=== PATIENT | male | born 1960 | race Caucasian/White ===

== ENCOUNTER → 2016-10-08 | Outpatient (CLI) | payer OTHER ==
[~2016-10-08] MED LIST: ACT30 PO; AMLO-110 PO; ASPI81TA28 PO; ATOR-22 PO; CARV25TA2 PO; CITA10TA4 PO; DICY20TA35 PO; FURO-85 PO; GLIM4TAB2 PO; LISI-788 PO; MAGN400T6 PO; METF1TAB53 PO; PANT40TA PO
--- NOTE | 2016-10-09 06:17 | PAP/PSG TECHNICIAN REPORT ---
[facility] Snuff Packing Machine Operator Polysomnogram Report Study name: None Report date: 10/09/2016 Study date: 10/08/2016 Referring Physician: Marquis Ho M.D. Name: URSULA AMANDO Vargas Interpreting Physician: Marlon Ho M.D. Date of : 1960 Snuff Packing Machine Operator: Falguni Borrego [facility]. Sex: Male Age: 55 StudyType: PSG Weight: 351 lbs Height: 55 years, Height 6' 0" Neck Circum: 20 inches BMI: 47.6 Medications: Protonix 40 mg, Prandin 2 mg, Lantus 100 Trulicty 1.5mg/0.5 ml, Norvasc 10 mg, Bentyl 20 mg, Coreg 25 mg, Magnesium Oxide 400 mg, Celexa 10 mg, Lipitor 20 mg, Lisinopril-HCTZ 20-25 mg, Glucophage 1000 mg, Aspirin 81 mg, Ventolin HFA 108( 90 base), Patient History 55 yr. old male here for a titration sleep study to document resolution of hypoxemia. Patient is currently on Auto from 5-15 and is averaging a pressure of 10.5. Parameters Monitored NPSG: E1-M2, E2-M1, Fp1-M2, Fp2-M1, F3-M2, F4-M2, F4-M1, C3-M2, C4-M2, C4-M1, O1-M2, O2-M2, O2-M1, T3-M2, T4-M1, P3-M2, P4-M1, CHIN1, CHIN2, HR, EKG, Legs, PFLOW, SNOR, FLOW, CFLOW, Tidal Volume, THOR, ABDO, SpO2, PLTH, CPRESS, ETCO2 Wave, ETCO2, pH Sleep Architecture Sleep Stages Time at Lights Off 9:40:44 PM STAGES Time (min.) TST (%) Time at Lights On 5:52:14 AM Wake 113.0 -- Total Recording Time (TRT) 491.00 min. N1 99.0 26 Total Sleep Period (TSP) 479.5 min. N2 209.5 55 Total Sleep Time (TST) 378.0min. N3 23.0 6 Awake Time 113.0 min. REM 46.5 12 Wake after Sleep Onset 102.0 min. Sleep Efficiency (SE) 77 % Sleep Onset Latency (SHANNAN) 11.5 min. Number of Stage 1 Shifts None Awakenings 40 Stage Changes 156 Number of REM periods 3 REM 46.5 12 REM Latency 225.0 min. NREM 331.5 88 Body Position Analysis Supine Right Left Side Prone Vertical Total Sleep Time (min.) 54.8 87.5 262.0 349.50 0.0 0.2 Total Sleep Time (%) 8% 23% 69% 92 0% N/A% Total Sleep Time REM (min.) 0.0 0.0 46.5 None 0.0 0.0 Total Sleep Time NREM (min.) 28.5 87.5 215.5 None 0.0 0.0 Intermittent Wake (min.) 26.3 25.1 61.4 None 0.0 0.2 Total Sleep Period (%) 9% None None None None None Arousals Myoclonus (PLM) * Events Count Index Events Count Index Spontaneous 21 3 Events Awake (PLMW) 90 47.8 Respiratory 22 3.8 Events Asleep w/ Arousal (PLMA) 32 5.1 PLM 30 5 Events Asleep w/o Arousal (PLMS) 179 28.4 Snoring 13 2 Total Asleep 211 33.5 Total 86 14 Total 301 37 Respiratory Analysis * CA OA MA CH H RERA Total Count 1 11 0 0 105 0 117 Index 0.2 1.7 0.0 0 16.7 0 18.6 Mean Duration 9.1 10.6 0.0 0.00 17.1 0.0 16.4 Longest Duration 9.1 13.0 0.0 0.00 0.0 0.0 59.3 Respiratory Event Summary Total Supine ~Supine Right Left Prone REM NREM Apneas Count 12 8 4 3 1 N/A 0 12 Index 1.9 17 1 2.1 0.2 N/A 0 2 Hypopneas (4% Desat) Count 105 42 63 28 35 N/A 12 93 Index 16.7 88.4 11 19.2 8.0 N/A 15.5 16.8 Apneas & All Hypopneas Count 117 50 67 31 36 N/A 12 105 Index 18.6 105 12 21 8 N/A 15.5 19.0 Respiratory Events (Environmental Sciences Professor+All Hyp+RERA) Count 117 50 67 31 36 N/A 12 105 Index 18.6 105 12 21.3 8.2 N/A 15.5 19.0 Respiratory Related Arousal Count 22 50 15 11 4 N/A 0 24 Index 3.8 19 3 8 1 N/A 0 4 Snoring Analysis Supine Right Left Prone REM NREM Total Snore duration 3.6 min Snores count 13 70 47 N/A 1 129 130 Snore mean duration 1.7 Sec Snores index 27 48 11 N/A 1.3 23.3 20.6 TST with snoring (%) 0.9% Desaturation Event Summary: Minimum %SpO2 Event Count Mean/Min/Max Duration(sec.) Desaturation Index % Time In Bed > 90 55 22.7 / 7.0 / 54.8 53.6 12.9 86 - 90 173 16.7 / 5.0 / 54.8 27.1 80.1 81 - 85 9 15.9 / 5.5 / 52.3 16.7 6.8 76 - 80 0 N/A 0.0 0.2 71 - 75 0 N/A 0.0 0.0 66 - 70 0 N/A 0.0 0.0 61 - 65 0 N/A 0.0 0.0 56 - 60 0 N/A 0.0 0.0 51 - 55 0 N/A 0.0 0.0 < 50 0 N/A 0.0 0.0 Total REM NREM Awake <50% 0.0 min. 0.0 min. 0.0 min. 0.0 min. 51 - 60% 0.0 min. 0.0 min. 0.0 min. 0.0 min. 61 - 70% 0.0 min. 0.0 min. 0.0 min. 0.0 min. 71 - 80% 1.1 min. 0.2 min. 0.3 min. 0.6 min. 81 - 90% 415.2 min. 42.6 min. 299.3 min. 73.3 min. 91 - 100% 61.6 min. 3.8 min. 31.4 min. 26.4 min. Average 88 88 88 89 Minimum SpO2 79 79 80 79 Desaturation Event Index 23.8 14.2 21.0 38.2 # Desat. Events below 89% 191 11 113 67 Time(%) with Saturation below 89% 58.1 5.5 42.4 10.2 Time(min.) with Saturation below 89% 277.5 26.1 202.5 48.9 Time (mins) REM (mins) NREM (mins) % of TST SpO2 Below 90% 126 11 N115 79.4 SpO2 Below 88% 37 0 0 35 Heart Rate Analysis Min (bpm) Max (bpm) Average (bpm) Awake 69 265 80 NREM 66 88 76 REM 65 89 75 Overall 65 89 76 Supplemental O2 Values Minimum O2 level: None Value Start Time End Time Snuff Packing Machine Operator Comments Mr. De La Cruz slept in the right, left, and supine positions. No cardiac arrhythmia. PLMs noted. No bruxism noted. CPAP was initiated at +4 CMH2O room air and up-titrated to an optimal level of + 14 CMH2O Cflex 3 with 1 lpm 02. At 4:46 am 1 lpm suppliemtal 02 was added, Mr. De La Cruz was on a pressure of 14 CMH20 for 126.8 min, AHI was 2.7 and he was under 89% for 71.8 minutes. The study was started with patient ResMed N10, but as the pressure increased so did the leak. He was switched to a large [employer] and Paykel Eson. Mr. De La Cruz awoke to use the restroom once during the night. Mr. De La Cruz stated, That was a normal night. The final report will be interpreted and signed by a sleep physician. The completed physician report will then be placed in the patient medical record. Therapy Event: Therapy (cm H20) 4 5 7 8 9 10 11 12 13 14 Total Time at Pressure (min.) 22.5 32.0 30.9 20.0 14.4 61.0 14.6 51.4 52.9 191.3 TST at Pressure (min.) 10.0 27.0 21.4 8.0 7.9 41.0 13.7 40.8 51.4 156.8 # Periods 1 1 1 1 1 1 1 1 1 1 Sleep Onset (min.) 11.5 0.0 0.0 1.1 0.0 0.0 0.0 10.6 0.0 0.0 REM Onset (min.) N/A N/A N/A N/A N/A N/A N/A 41.1 0.0 99.3 Sleep Efficiency % 44 84 69 39 54 67 93 79 97 82 Wakefulness (%) 55.4 15.6 30.6 60.2 45.3 32.8 6.3 20.6 2.8 18.0 Wakefulness (min.) 12.5 5.0 9.4 12.1 6.5 20.0 0.9 10.6 1.5 34.5 NREM 1 (%) 28.9 50.0 27.5 29.8 47.8 11.5 35.4 9.7 6.6 18.0 NREM 1 (min.) 6.5 16.0 8.5 6.0 6.9 7.0 5.2 5.0 3.5 34.5 NREM 2 (%) 15.7 34.4 41.9 10.0 7.0 39.3 58.2 37.0 44.8 54.3 NREM 2 (min.) 3.5 11.0 12.9 2.0 1.0 24.0 8.5 19.0 23.7 103.8 NREM 3 (%) 0.0 0.0 0.0 0.0 0.0 16.4 0.0 12.7 0.0 3.4 NREM 3 (min.) 0.0 0.0 0.0 0.0 0.0 10.0 0.0 6.5 0.0 6.5 REM (%) 0.0 0.0 0.0 0.0 0.0 0.0 0.0 20.0 45.8 6.3 REM (min.) 0.0 0.0 0.0 0.0 0.0 0.0 0.0 10.3 24.2 12.0 # Arousals 2 10 18 5 2 10 6 2 3 28 Arousal Index 12.0 22.2 50.4 37.7 15.3 14.6 26.3 2.9 3.5 10.7 # Snore 1 35 29 4 3 11 6 1 11 29 Snore Index 6.0 77.7 81.2 30.1 22.9 16.1 26.3 1.5 12.8 11.1 AHI 29.9 40.0 56.0 75.3 106.9 22.0 83.4 11.8 3.5 1.9 AHI Supine N/A N/A N/A 92.8 143.0 162.4 83.4 N/A N/A N/A AHI Non-Supine 29.9 40.0 56.0 0.0 42.5 9.6 N/A 11.8 3.5 1.9 NREM AHI 29.9 40.0 56.0 75.3 106.9 22.0 83.4 0.0 2.2 1.2 REM AHI N/A N/A N/A N/A N/A N/A N/A 46.6 5.0 10.0 RDI 29.9 40.0 56.0 75.3 106.9 22.0 83.4 11.8 3.5 1.9 # Obstructive 0 3 1 3 1 2 1 0 0 0 # Central Ap 0 0 0 0 0 0 1 0 0 0 # Mixed 0 0 0 0 0 0 0 0 0 0 # Hypopneas 5 15 19 7 13 13 17 8 3 5 RERAS 0 0 0 0 0 0 0 0 0 0 Total Respiratory Events 5 18 20 10 14 15 19 8 3 5 Time Below SpO2 89.00% (min.) 9.1 18.1 17.0 4.8 5.6 39.6 11.5 28.1 21.8 73.0 Mean NREM SpO2 (%) 87 88 87 88 87 86 87 88 89 89 Mean REM SpO2 (%) N/A N/A N/A N/A N/A N/A N/A 87 89 87 Mean Sleep SpO2 (%) 87 88 87 88 87 86 87 88 89 89 Min NREM SpO2 (%) 83 82 81 84 84 80 83 86 87 85 Min REM SpO2 (%) N/A N/A N/A N/A N/A N/A N/A 79 86 83 Position Supine (min.) 0.0 0.0 0.0 6.5 5.0 3.3 13.7 0.0 0.0 0.0 Position Non-supine (min.) 10.0 27.0 21.4 1.5 2.8 37.7 0.0 40.8 51.4 156.8 LM Index Sleep 6.0 8.9 56.0 30.1 53.5 17.6 17.6 11.8 36.2 45.9 LM Index NREM 6.0 8.9 56.0 30.1 53.5 17.6 17.6 11.8 55.2 46.8 LM Index REM N/A N/A N/A N/A N/A N/A N/A 11.7 14.9 35.0 Mean Heart Rate (bpm) 78 78 78 77 78 79 76 78 74 75 Min Heart Rate (bpm) 74 73 74 74 74 73 72 66 65 66
--- NOTE | 2016-10-19 17:34 | POLYSOMNOGRAPH REPORT ---
REFERRING PERSON: Dr. Karin Ho. GENERATOR ASSEMBLER: Falguni Borrego. Mr. De La Cruz is a 55-year-old male sent for a CPAP titration study. He is currently using an auto titrating CPAP at home with an average pressure of about 10. He had considerable nocturnal hypoxemia on his baseline study and returns to the lab to make sure that this resolves with CPAP alone. Following the technical and digital specifications of the [place] [employer] (AASM) a standard diagnostic polysomnogram was performed monitoring EEG, EOG, EMG (chin and leg deviations), oxygen saturation, body position, digital video, respiratory effort and airflow. The sleep Stage and event scoring was based on the AASM Manual for the Scoring of Sleep and Associated Events 2007 edition. Apneas are defined as a drop in the peak thermal sensor excursion by >90% of baseline for at least 10 seconds. Hypopneas were scored using the 4% oxygen desaturation rule (4A-Medicare) and a decrease in the nasal pressure excursions by >30% of baseline for at least 10 seconds. Respiratory effort-related arousal (RERA's) is defined as a sequence of breaths lasting at least 10 seconds characterized by increasing respiratory effort or flattening of the nasal pressure waveform leading to an arousal from sleep when the sequence of breaths does not meet criteria for an apnea or hypopnea. Apnea Hypopnea index (AHI) is defined as the number of apneas and hypopneas occurring in an hour of sleep. Respiratory disturbance index (RDI) is defined as the number of apneas, hypopneas, and RERA's occurring in an hour of sleep. Mr. De La Cruz's total sleep period time was 479.5 minutes. Total sleep time was 378 minutes. Sleep efficiency was 77%. Latency to sleep onset was 11.5 minutes. Wake after sleep onset was 102 minutes. Total non-REM sleep time was 331.5 minutes. He spent 26% of that time in N1 sleep, 55% in N2 sleep and 6% in N3 sleep. REM latency was 225 minutes. Total REM sleep time was 46.5 minutes or 12% of total sleep time. There were 86 cortical arousals from sleep. Twenty one of these arousals were spontaneous, 22 were due to respiratory events, 30 were due to periodic limb movements of sleep and 13 were due to snoring. There were 211 periodic limb movements noted on this test. Limb movement index was 33.5. Limb movement with arousal index was 5.1. On the study, there were 11 obstructive apneas, 1 central apnea and no mixed apnea. Additionally, there were 105 hypopnea. Apnea-hypopnea index was 18.6. There were 130 snoring events. Total sleep time with snoring was 0.9%. Mean saturation was low at 88% with desaturations with respiratory events to 79%. Saturations were less than 89% for 277.5 minutes of recorded time. There was no cardiac ectopy noted on this study. Heart rate ranged from a low of 65 beats per minute to a high of 89 beats per minute during sleep. As stated above, this patient was sent to the lab for a CPAP titration study. He was titrated from a CPAP pressure of 4 to a CPAP pressure of 14 over the course of the night. Increasing pressures were needed to prevent apneas, hypopneas and arousals. He was observed on a pressure of 14 for 156.8 minutes of sleep time. During that time, there were 12 minutes of REM sleep. AHI and RDI on this pressure were both 1.9. Saturations remained below 89% on this pressure for 73 minutes of recorded time. After Mr. De La Cruz had been on CPAP at a pressure of 14 for 126.8 minutes with an AHI of 2.67, his saturations were less than 89% for 71.8 minutes and he was started on 1 liter of oxygen. This did seem to improve his hypoxemia but did not completely eliminate desaturations. He tried multiple masks during the night and appears he did well on a large A[employer]ria \T\ Paykel Eson mask. IMPRESSION AND PLAN: Successful CPAP titration study on a patient with known obstructive sleep apnea. Using a large [employer] \T\ Paykel Eson mask at a pressure of 14, Mr. De La Cruz's apnea was resolved. However, this patient continued to have nocturnal hypoxemia which improved with 1 liter of oxygen. 1. I would recommend that this patient be started on CPAP at 14 with 1 liter of nocturnal oxygen for desaturations despite adequate treatment of sleep disordered breathing. An n.p.o. can be performed on these settings to ensure 1 liter of oxygen is sufficient to eliminate these residual events.
== END | disposition home or self-care (01) ==
LOC: C.NEUR 20:00
PROVIDERS: ATTEND Family Medicine
DX: G47.33 Obstructive sleep apnea (adult) (pediatric) (principal); G47.34 Idiopathic sleep related nonobstructive alveolar hypoventilation

== ENCOUNTER → 2017-01-27 | Outpatient (CLI) | payer OTHER ==
--- NOTE | 2017-01-28 06:21 | PAP/PSG TECHNICIAN REPORT ---
[facility] Power Plant Supervisor Polysomnogram Report Study name: None Report date: 01/28/2017 Study date: 01/27/2017 Referring Physician: Marquis Ho M.D. Name: URSULA AMANDO Sam Interpreting Physician: Marlon Ho M.D. Date of : 1960 Power Plant Supervisor: Stephanie More RPSGT. Sex: Male Age: 56 Study Type: PSG PAP Weight: 364 lbs Height: 56 years, Height 6' 0" BMI: 49.36 Medications: LISIONPRIL-HYDROCHLOROTHIAZIDE 20-25 MG, CARVEDILOL 25 MG, MAGNESIUM OXIDE 400 MG, PRANDIN 2 MG, LANTUS 100 UNIT/ML, ASPIRIN 81 MG, PANTOPRAZOLE 40 MG, DULAGLUTIDE 1.5 MG/0.5 ML, AMLODIPINE 10 MG, BENTYL 20 MG, CITALOPRAM 10 MG, ATORVASTATIN 20 MG, METFORMIN 1000 MG, VENTOLIN HFA, TRIAMCINOLONE ACETONIDE 0.1% EX OINT Patient History 56 yr-old male here for a CPAP update study. He wears CPAP every night and uses O2 along with it. He is back to assess his pressure and O2 saturations. BiPAP will be used if indicated. Per the doctor's order the pressure will be started on 12 CMH2O with 2 LPM O2. He is wearing an AirFit N20 nasal mask from [employer] for [employer]. ETCO2 testing was not utilized during this study. Room 1 Parameters Monitored NPSG: E1-M2, E2-M1, Fp1-M2, Fp2-M1, F3-M2, F4-M2, F4-M1, C3-M2, C4-M2, C4-M1, O1-M2, O2-M2, O2-M1, T3-M2, T4-M1, P3-M2, P4-M1, CHIN1, CHIN2, HR, EKG, Legs, PFLOW, SNOR, FLOW, CFLOW, Tidal Volume, THOR, ABDO, SpO2, PLTH, CPRESS, ETCO2 Wave, ETCO2, pH Sleep Architecture Sleep Stages Time at Lights Off 9:39:57 PM STAGES Time (min.) TST (%) Time at Lights On 5:32:27 AM Wake 75.5 -- Total Recording Time (TRT) 472.50 min. N1 26.0 7 Total Sleep Period (TSP) 447.0 min. N2 251.5 63 Total Sleep Time (TST) 397.0min. N3 2.5 1 Awake Time 75.5 min. REM 117.0 29 Wake after Sleep Onset 58.5 min. Sleep Efficiency (SE) 84 % Sleep Onset Latency (SHANNAN) 17.0 min. Number of Stage 1 Shifts None Awakenings 21 Stage Changes 92 Number of REM periods 10 REM 117.0 29 REM Latency 54.0 min. NREM 280.0 71 Body Position Analysis Supine Right Left Side Prone Vertical Total Sleep Time (min.) 0.2 205.5 191.5 397.00 0.0 0.0 Total Sleep Time (%) 0% 52% 48% 100 0% N/A% Total Sleep Time REM (min.) 0.0 71.5 45.5 None 0.0 0.0 Total Sleep Time NREM (min.) 0.0 134.0 146.0 None 0.0 0.0 Intermittent Wake (min.) 0.2 43.0 32.3 None 0.0 0.0 Total Sleep Period (%) 0% None None None None None Arousals Myoclonus (PLM) * Events Count Index Events Count Index Spontaneous 33 5 Events Awake (PLMW) 34 27.0 Respiratory 1 0.2 Events Asleep w/ Arousal (PLMA) 20 3.0 PLM 20 3 Events Asleep w/o Arousal (PLMS) 283 42.8 Snoring 6 1 Total Asleep 303 45.8 Total 60 9 Total 337 43 Respiratory Analysis * CA OA MA CH H RERA Total Count 1 0 0 0 19 0 20 Index 0.2 0.0 0.0 0 2.9 0 3.0 Mean Duration 11.3 0.0 0.0 0.00 16.4 0.0 16.2 Longest Duration 11.3 0.0 0.0 0.00 0.0 0.0 22.2 Respiratory Event Summary Total Supine ~Supine Right Left Prone REM NREM Apneas Count 1 N/A 1 1 0 N/A 1 0 Index 0.2 N/A 0 0.3 0.0 N/A 1 0 Hypopneas (4% Desat) Count 19 N/A 19 2 17 N/A 16 3 Index 2.9 N/A 3 0.6 5.3 N/A 8.2 0.6 Apneas & All Hypopneas Count 20 N/A 20 3 17 N/A 17 3 Index 3.0 N/A 3 1 5 N/A 8.7 0.6 Respiratory Events (All Around Patternmaker+All Hyp+RERA) Count 20 N/A 20 3 17 N/A 17 3 Index 3.0 N/A 3 0.9 5.3 N/A 8.7 0.6 Respiratory Related Arousal Count 1 N/A 1 1 0 N/A 0 1 Index 0.2 N/A 0 0 0 N/A 0 0 Snoring Analysis Supine Right Left Prone REM NREM Total Snore duration 1.5 min Snores count N/A 19 15 N/A 5 29 34 Snore mean duration 2.6 Sec Snores index N/A 6 5 N/A 2.6 6.2 5.1 TST with snoring (%) 0.4% Desaturation Event Summary: Minimum %SpO2 Event Count Mean/Min/Max Duration(sec.) Desaturation Index % Time In Bed > 90 44 32.3 / 9.0 / 60.0 8.6 64.8 86 - 90 23 26.2 / 11.3 / 60.0 8.4 34.9 81 - 85 0 N/A 0.0 0.3 76 - 80 0 N/A 0.0 0.0 71 - 75 0 N/A 0.0 0.0 66 - 70 0 N/A 0.0 0.0 61 - 65 0 N/A 0.0 0.0 56 - 60 0 N/A 0.0 0.0 51 - 55 0 N/A 0.0 0.0 < 50 0 N/A 0.0 0.0 Total REM NREM Awake <50% 0.0 min. 0.0 min. 0.0 min. 0.0 min. 51 - 60% 0.0 min. 0.0 min. 0.0 min. 0.0 min. 61 - 70% 0.0 min. 0.0 min. 0.0 min. 0.0 min. 71 - 80% 0.0 min. 0.0 min. 0.0 min. 0.0 min. 81 - 90% 166.2 min. 67.5 min. 95.7 min. 3.0 min. 91 - 100% 305.8 min. 49.5 min. 184.3 min. 72.0 min. Average 91 90 91 94 Minimum SpO2 84 84 85 85 Desaturation Event Index 6.5 13.8 4.3 3.2 # Desat. Events below 89% 29 21 8 N/A Time(%) with Saturation below 89% 10.6 5.6 4.8 0.2 Time(min.) with Saturation below 89% 49.9 26.5 22.8 0.7 Time (mins) REM (mins) NREM (mins) % of TST SpO2 Below 90% 44 26 N18 22.6 SpO2 Below 88% 14 0 0 6 Heart Rate Analysis Min (bpm) Max (bpm) Average (bpm) Awake 62 89 74 NREM 58 85 69 REM 56 83 66 Overall 56 85 68 Supplemental O2 Values Minimum O2 level: None Value Start Time End Time Power Plant Supervisor Comments Mr. De La Cruz slept in the right and left positions. No cardiac arrhythmias were noted. PLMs were noted. No bruxism noted. CPAP was initiated at +12 CMH2O and 2 LPM O2 (per the doctor's order) and up-titrated to a level of +13 CMH2O, Cflex 2. He continued to have hypopneas in REM, so he was then switched to BiPAP at +15/8 CMH2O Biflex 3. He used his own AirFit N20 nasal mask from [employer] for [employer] during the titration He did not wake up to use the restroom during the night. Mr. De La Cruz stated that he slept about the same as usual. The final report will be interpreted and signed by a sleep physician. The completed physician report will then be placed in the patient medical record. Therapy Event: Therapy (cm H20) 12 13 15/8 Total Time at Pressure (min.) 111.9 251.0 109.6 TST at Pressure (min.) 69.4 228.6 99.0 # Periods 1 1 1 Sleep Onset (min.) 17.0 0.0 0.1 REM Onset (min.) 71.0 36.6 34.6 Sleep Efficiency % 62 91 90 Wakefulness (%) 38.0 8.9 9.7 Wakefulness (min.) 42.5 22.4 10.6 NREM 1 (%) 6.7 5.4 4.6 NREM 1 (min.) 7.5 13.5 5.0 NREM 2 (%) 45.9 65.4 32.8 NREM 2 (min.) 51.4 164.1 36.0 NREM 3 (%) 0.4 0.8 0.0 NREM 3 (min.) 0.5 2.0 0.0 REM (%) 8.9 19.5 52.9 REM (min.) 10.0 49.0 58.0 # Arousals 16 32 12 Arousal Index 13.8 8.4 7.3 # Snore 5 17 12 Snore Index 4.3 4.5 7.3 AHI 6.1 2.9 1.2 AHI Supine N/A N/A N/A AHI Non-Supine 6.1 2.9 1.2 NREM AHI 0.0 0.7 1.5 REM AHI 42.0 11.0 1.0 RDI 6.1 2.9 1.2 # Obstructive 0 0 0 # Central Ap 0 0 1 # Mixed 0 0 0 # Hypopneas 7 11 1 RERAS 0 0 0 Total Respiratory Events 7 11 2 Time Below SpO2 89.00% (min.) 3.9 7.4 37.9 Mean NREM SpO2 (%) 91 91 89 Mean REM SpO2 (%) 89 90 90 Mean Sleep SpO2 (%) 91 91 89 Min NREM SpO2 (%) 88 87 85 Min REM SpO2 (%) 85 85 84 Position Supine (min.) 0.0 0.0 0.0 Position Non-supine (min.) 69.4 228.6 99.0 LM Index Sleep 19.0 73.0 1.8 LM Index NREM 20.2 90.8 0.0 LM Index REM 12.0 7.3 3.1 Mean Heart Rate (bpm) 73 68 63 Min Heart Rate (bpm) 66 60 56 CPAP REPORT Therapy Detail Time / Page # Comment CPAP 12 cm H2O Nasal Mask Flex Pressure Relief Humidifier on Oxygen 2.0 lpm 9:37:08 PM / pg. 150 PRESSURE STARTED AT 12 WITH 2 LPM OF O2 PER DOCTOR'S ORDER CPAP 13 cm H2O Nasal Mask Flex Pressure Relief Humidifier on Oxygen 2.0 lpm 11:31:48 PM / pg. 379 INCREASED FOR HYPOPNEAS IN REM BiLevel 15/8 cm H2O Nasal Mask Flex Pressure Relief Humidifier on Oxygen 2.0 lpm 3:42:50 AM / pg. 881 HE IS STILL HAVING SOME HYPOPNEAS IN REM. TRYING BIPAP WITH A PRESSURE DIFFERENTIAL OF 7
--- NOTE | 2017-02-05 09:41 | POLYSOMNOGRAPH REPORT ---
REFERRING PERSON: Dr. Karin Ho. PROMOTIONS SPECIALIST: Stephanie More. Mr. De La Cruz is a 56-year-old male sent for a CPAP titration study. He currently is using CPAP at 12 with 2 liters of oxygen and this titration will begin on those settings. He will be switched to bilevel therapy if indicated. He chose an AirFit N20 nasal mask by [employer] for his titration. Mr. De La Cruz's [place] sleepiness scale score on the evening of this study is not recorded. BMI is 49.36. Following the technical and digital specifications of the [place] [employer] (AASM) a standard diagnostic polysomnogram was performed monitoring EEG, EOG, EMG (chin and leg deviations), oxygen saturation, body position, digital video, respiratory effort and airflow. The sleep Stage and event scoring was based on the AASM Manual for the Scoring of Sleep and Associated Events 2007 edition. Apneas are defined as a drop in the peak thermal sensor excursion by >90% of baseline for at least 10 seconds. Hypopneas were scored using the 4% oxygen desaturation rule (4A-Medicare) and a decrease in the nasal pressure excursions by >30% of baseline for at least 10 seconds. Respiratory effort-related arousal (RERA's) is defined as a sequence of breaths lasting at least 10 seconds characterized by increasing respiratory effort or flattening of the nasal pressure waveform leading to an arousal from sleep when the sequence of breaths does not meet criteria for an apnea or hypopnea. Apnea Hypopnea index (AHI) is defined as the number of apneas and hypopneas occurring in an hour of sleep. Respiratory disturbance index (RDI) is defined as the number of apneas, hypopneas, and RERA's occurring in an hour of sleep. Mr. Juarezs total sleep period time was 447 minutes. Total sleep time was 397 minutes. Sleep efficiency was 84%. Latency to sleep onset was 17 minutes with wake after sleep onset of 58.5 minutes. Total non-REM sleep time was 280 minutes. He spent 7% of that time in N1 sleep, 63% in N2 sleep and 1% in N3 sleep. REM latency was 54 minutes. Total REM sleep time was 117 minutes or 29% of total sleep time. There were 60 cortical arousals from sleep. Six of these arousals were due to snoring, 20 due to periodic limb movements of sleep, 1 due to a respiratory event and the remaining 33 were spontaneous. There were 303 periodic limb movements noted on this test. Limb movement index was 45.8. Limb movement with arousal index was 3. There was 1 central, no obstructive, and no mixed apneas on this test. There were 19 hypopneas. Apnea-hypopnea index on this titration was normal at 3. There were 34 snoring events recorded. Total sleep time with snoring was 0.4%. Mean saturation was 91%. Saturations dropped to 84% and below 89 for 10.6 minutes of this titration. There was no cardiac ectopy noted on this test. Heart rates ranged from a low of 56 beats per minute to a high of 58 beats per minute on this titration. As stated above, this was a titration study. Mr. De La Cruz's titration was begun on a CPAP pressure of 12 with 2 liters of supplemental oxygen. He was titrated on CPAP to a pressure of 13, but continued to have hypopneic events in REM sleep and was switched to bilevel therapy. He remained on BIPAP at an inspiratory pressure of 15 and an expiratory pressure of 8 for 99 minutes on this test. 58 of those minutes was spent in non-supine REM sleep. AHI and RDI on this pressure were both 1.2 but his saturations did remain low despite 2 liters of oxygen supplementation for 37.9 minutes on this pressure with 2 liters of oxygen. IMPRESSION AND PLAN: 56-year-old male with a known history of obstructive sleep apnea who appears to need bilevel therapy of 15/8 to eliminate his sleep disordered breathing. Although he is currently on 2 liters of oxygen at home with his CPAP machine, 2 liters of oxygen does not seem adequate to eliminate his hypoxemia on this test. 1. I would recommend that he be placed on BIPAP at 15/8 with 3 liters of supplemental oxygen. An overnight oximetry can be performed on these settings to ensure his hypoxemia resolves. EMILIA
== END | disposition home or self-care (01) ==
LOC: C.NEUR 20:00
PROVIDERS: ATTEND Family Medicine
DX: G47.33 Obstructive sleep apnea (adult) (pediatric) (principal); R09.02 Hypoxemia

== ENCOUNTER → 2017-07-15 | Outpatient (CLI) | payer OTHER ==
[~2017-07-15] VITALS: Ht 182.9 cm; Wt 159.4 kg
[~2017-07-15] MED LIST changes: +DICY20TA10 PO; +DULA0.5I SQ; +INSU100I23 SQ; +INSU70IN2 SC; +NVLGI/PEN SC; +TRMCR130WC TOP; +VNTHFA/IN INH
[2017-07-15 10:28] VITALS: Ht 182.9 cm; Wt 159.4 kg
--- NOTE | 2017-07-15 11:05 | PAT Medication Instructions ---
Service Date Jul 15, 2017. Current Home Medication List Albuterol Hfa (Ventolin Hfa), 2 PUFFS INH UD PRN for PRN Amlodipine (Norvasc), 10 MG PO QAM Aspirin (Aspirin Ec), 81 MG PO QAM Atorvastatin (Lipitor), 20 MG PO HS Carvedilol (Coreg), 37.5 MG PO BID Citalopram Hydrobromide (Citalopram Hydrobromide), 1 TAB PO HS Dicyclomine Hcl (Dicyclomine Hcl), 1 TAB PO QDD Dulaglutide (Trulicity), 1 DOSE SQ ONCE A WEEK Furosemide (Lasix), 20 MG PO DAILY PRN for WATER RETENTION Insulin Glargine (Basaglar Kwikpen), 55 UNITS SQ BID Insulin Isophan/Regular (Novolin 70/30), Unknown Dose SC TIDM Lisinopril/Hctz (Zestoretic 20MG/25MG), 1 TAB PO QAM Magnesium Oxide (Mag-Ox), 400 MG PO QAM Metformin Hcl (Glucophage Ext Rel), 1,000 MG PO BID Pantoprazole (Protonix), 40 MG PO QAM Triamcinolone Acet (Aristocort 0.1%), Unknown Dose TOP UD PRN for PRN Medication Instructions For Your Scheduled Surgery - Continue as directed: Dulaglutide (Trulicity), 1 DOSE SQ ONCE A WEEK - Hold the following medications 24 hours prior to surgery: Triamcinolone Acet (Aristocort 0.1%), Unknown Dose TOP UD PRN for PRN - Hold the following medications 48 hours prior to surgery: Metformin Hcl (Glucophage Ext Rel), 1,000 MG PO BID - Hold the following medications the morning of surgery: Furosemide (Lasix), 20 MG PO DAILY PRN for WATER RETENTION Lisinopril/Hctz (Zestoretic 20MG/25MG), 1 TAB PO QAM Magnesium Oxide (Mag-Ox), 400 MG PO QAM Insulin Aspart, Unknown Dose SC TIDM - Take the following medications the morning of surgery with a sip of water: Pantoprazole (Protonix), 40 MG PO QAM Carvedilol (Coreg), 37.5 MG PO BID Aspirin (Aspirin Ec), 81 MG PO QAM Amlodipine (Norvasc), 10 MG PO QAM Albuterol Hfa (Ventolin Hfa), 2 PUFFS INH UD PRN for PRN (if needed) - Take the following medications as scheduled the night before surgery: Furosemide (Lasix), 20 MG PO DAILY PRN for WATER RETENTION Dicyclomine Hcl (Dicyclomine Hcl), 1 TAB PO QDD Citalopram Hydrobromide (Citalopram Hydrobromide), 1 TAB PO HS Carvedilol (Coreg), 37.5 MG PO BID Atorvastatin (Lipitor), 20 MG PO HS Albuterol Hfa (Ventolin Hfa), 2 PUFFS INH UD PRN for PRN(if needed) Insulin Aspart, Unknown Dose SC TIDM Insulin Glargine (Basaglar Kwikpen) - For Insulin Dependent Diabetic patients: Test blood sugar A.M. of surgery. - If Blood sugar greater than 150, take half of your regular dose of: Insulin Glargine (Basaglar Kwikpen), take 27 units - If Blood sugar less than 150, do not take any: Insulin Glargine ( Basaglar Kwikpen) If you have any questions please call us at [phone] or [phone] or [phone]
[2017-07-15 12:08] LABS: BASO % 0.2 %; BASO ABS # 0.02 K/uL (0-0.2); EOS % 1.9 %; EOS ABS # 0.17 K/uL (0-0.5); HEMOGLOBIN 12.5 g/dL (14.0-18.0); IG# 0.02 K/uL (0.00-0.02); LYMPH % 16.4 %; LYMPH ABS # 1.48 K/uL (1.2-3.4); MEAN CELL VOLUME 80.9 fL (80-100); MEAN CORPUSCULAR HEMOGLOBIN 25.9 pg (25-34); MEAN CORPUSCULAR HGB CONC 32.1 g/dl (32-36); MEAN PLATELET VOLUME 10.2 fL (7.4-10.4); MONO % 5.4 %; MONO ABS # 0.49 K/uL (0.11-0.59); NEUT % 75.9 %; NEUT ABS # 6.83 K/uL (1.4-6.5); PLATELET COUNT 233 K/uL (130-400); RED CELL DISTRIBUTION WIDTH CV 16.1 % (11.5-14.5); RED CELL DISTRIBUTION WIDTH SD 47.9 fL (36.4-46.3); WHITE BLOOD COUNT 9.01 K/uL (4.8-10.8)
--- NOTE | 2017-07-15 12:12 | DIAGNOSTIC IMAGING REPORT ---
CHEST 2 VIEWS ROUTINE CLINICAL HISTORY: Preoperative evaluation. COMPARISON STUDY: Chest radiograph November or 10/03/2016. FINDINGS: Lung volumes are normal. Elevation/eventration of the right hemidiaphragm is unchanged. No pneumothorax or pleural effusion is noted. There is no consolidation or evidence of pulmonary edema. Moderate cardiomegaly is unchanged. IMPRESSION: 1. No acute cardiopulmonary findings. 2. Stable moderate cardiomegaly. Electronically signed by: Julio Gold M.D. 07/15/2017 12:10 PM Dictated Date/Time: 07/15/2017 12:07 PM
[2017-07-15 12:17] LABS: PTT PATIENT 26.8 SECONDS (21.0-31.0)
[2017-07-15 12:59] LABS: ALBUMIN 3.4 gm/dl (3.4-5.0); CALCIUM 9.4 mg/dl (8.5-10.1); CREATININE 0.97 mg/dl (0.60-1.40); POTASSIUM 3.9 mmol/L (3.5-5.1)
[2017-07-15 13:02] LABS: HEMOGLOBIN A1C 8.4 % (4.5-5.6)
--- NOTE | 2017-09-23 13:46 | CODING QUERY MEDICAL NECESSITY ---
CQSUPPORTING DIAGNOSIS NEEDED A supporting diagnosis is required for the test/procedure performed on this patient in order for us to be reimbursed by the patient's insurance. Please provide a supporting diagnosis for the following test/procedure listed below next to the test name along with your signature. *If there is no additional diagnosis for this patient that would support the following test/procedure please document that below next to the test/procedure. Test(s)/Procedure(s) that require a supporting diagnosis: DOS 07/15/17 GLYCATED HEMOGLOBIN TEST Provider Signature: Date: Thank you Ruby Benavidez Health Information Management Once completed, please kindly fax back to [phone] For questions please call [phone]
== END | disposition home or self-care (01) ==
LOC: C.LAB 08:00 → EDSTATUS 07-28 10:01
PROVIDERS: ATTEND Orthopaedic Surgery
DX: Z01.810 Encounter for preprocedural cardiovascular examination (principal); Z01.811 Encounter for preprocedural respiratory examination; Z01.812 Encounter for preprocedural laboratory examination; M17.12 Unilateral primary osteoarthritis, left knee

== ENCOUNTER → 2017-09-02 | Outpatient (CLI) | payer OTHER ==
[~2017-09-02] MED LIST changes: -ACT30 PO; -DICY20TA35 PO; -GLIM4TAB2 PO; -INSU70IN2 SC
[2017-09-02 12:22] LABS: HEMOGLOBIN A1C 7.4 % (4.5-5.6)
[2017-09-02 12:44] LABS: ALT/SGPT 36 U/L (12-78); AST/SGOT 18 U/L (15-37); BLOOD UREA NITROGEN 14 mg/dl (7-18); CALCIUM 9.4 mg/dl (8.5-10.1); CARBON DIOXIDE 28 mmol/L (21-32); CREATININE 1.08 mg/dl (0.60-1.40); GLUCOSE 91 mg/dl (70-99); POTASSIUM 4.1 mmol/L (3.5-5.1); SODIUM 140 mmol/L (136-145)
[2017-09-02 12:54] LABS: ALKALINE PHOSPHATASE 105 U/L (45-117); TOTAL PROTEIN 7.6 gm/dl (6.4-8.2)
== END | disposition home or self-care (01) ==
LOC: C.LAB1850 11:05
PROVIDERS: ATTEND Physician Assistant
DX: E11.9 Type 2 diabetes mellitus without complications (principal); I10 Essential (primary) hypertension; E66.9 Obesity, unspecified